=== PATIENT | male | born 1955 | race Caucasian/White ===

== ENCOUNTER 2016-08-09 13:02 | Emergency (ER) | payer SELFPAY ==
[2016-08-09] MEDS ORDERED: IBUPROFEN600 M1 PO (13:52)
[2016-08-09] MEDS ORDERED: OXYCODONE HCL5 M1 PO (13:53)
[2016-08-09] MEDS ORDERED: SYNTHROID25 MC1 PO (13:59)
[2016-08-09] MEDS ORDERED: PERCOCET 5-3251 EACH PO (15:23)
== END 2016-08-09 15:31 ==
LOC: EDMED 13:02
DX: S20.211A Contusion of right front wall of thorax, initial encounter (principal); E03.9 Hypothyroidism, unspecified; Z79.890 Hormone replacement therapy; F17.210 Nicotine dependence, cigarettes, uncomplicated; W11.XXXA Fall on and from ladder, initial encounter; Y92.69 Other specified industrial and construction area as the place of occurrence of the external cause; Y99.0 Civilian activity done for income or pay

== ENCOUNTER 2016-08-18 10:00 | Emergency (ER) | payer SELFPAY ==
[~2016-08-18 10:00] MED LIST: IBUPROFEN600 M1 PO; OXYCODONE HCL5 M1 PO; PERCOCET 5-3251 EACH PO; SYNTHROID25 MC1 PO
[2016-08-18] MEDS ORDERED: OXYCODONE HCL5 M1 PO (13:28)
== END 2016-08-18 13:43 ==
LOC: EDMED 10:00
DX: S20.211D Contusion of right front wall of thorax, subsequent encounter (principal); F17.200 Nicotine dependence, unspecified, uncomplicated; W19.XXXD Unspecified fall, subsequent encounter